=== PATIENT | male | born 1990 | race Caucasian/White ===

== ENCOUNTER 2024-11-07 20:31 | Emergency (ER) | payer SELFPAY ==
[~2024-11-07] VITALS: Ht 170.2 cm; Wt 109.0 kg
[2024-11-07 20:42] VITALS: O2SAT 98
[2024-11-07 21:38] LABS: CLARITY URINE CLEAR (CLEAR); COLOR URINE YELLOW (YELLOW); GLUCOSE URINE NEGATIVE (NEGATIVE); KETONES URINE NEGATIVE (NEGATIVE); LEUKOCYTE ESTERASE URINE NEGATIVE (NEGATIVE); NITRITE URINE NEGATIVE (NEGATIVE); OCCULT BLOOD URINE NEGATIVE (NEGATIVE); PH URINE 6.0 (4.5-8.0); PROTEIN URINE NEGATIVE (NEGATIVE); SPECIFIC GRAVITY URINE 1.004 (1.005-1.030); UROBILINOGEN URINE 0.2 E.U./dL (0.2-1.0)
[2024-11-07 21:44] LABS: HEMATOCRIT. 38.9 % (42.0-52.0); HEMOGLOBIN. 12.8 g/dL (14.0-18.0); MEAN PLATELET VOLUME 6.7 fl (7.4-10.4); PLATELET 551 x1000/uL (130-400); RED BLOOD CELL COUNT 4.23 mill/uL (4.7-6.1); RED CELL DISTRIBUTION WIDTH 15.2 % (11.6-14.6)
[2024-11-07 21:47] LABS: *AMPHETAMINES SCREEN URINE NEGATIVE (NEGATIVE); *BARBITURATES SCREEN URINE NEGATIVE (NEGATIVE); *BENZODIAZEPINES SCREEN URINE PRESUMPTIVE POSITIVE (NEGATIVE); *COCAINE SCREEN URINE NEGATIVE (NEGATIVE); METHADONE URINE SCREEN NEGATIVE (NEGATIVE); OPIATES URINE SCREEN NEGATIVE (NEGATIVE)
[2024-11-07 21:48] LABS: CANNABINOID URINE SCREEN PRESUMPTIVE POSITIVE (NEGATIVE); ECSTASY MDMA SCREEN URINE NEGATIVE (NEGATIVE); PHENCYCLIDINE URINE SCREEN NEGATIVE (NEGATIVE)
[2024-11-07 21:57] LABS: CREATININE 0.7 mg/dL (0.6-1.3)
[2024-11-07 21:59] LABS: ASPARTATE AMINOTRANSFERASE 134 IU/L (<34); BILIRUBIN DIRECT 0.8 mg/dL (<=3.0); UREA NITROGEN BLOOD < 5 mg/dL (9-23)
[2024-11-07 22:00] LABS: PROTEIN TOTAL 7.8 g/dL (6.0-8.3)
[2024-11-07 22:01] LABS: BILIRUBIN TOTAL 1.1 mg/dL (0.1-1.0)
[2024-11-07 22:15] LABS: EOSINOPHILS % MANUAL 2.0 % (0.0-5.0); LYMPHOCYTES % MANUAL 26.0 % (20.0-50.0); MONOCYTES % MANUAL 8.0 % (2.0-8.0); NEUTROPHILS % MANUAL 64.0 % (45.0-75.0); PLATELET ESTIMATE INCREASED
[2024-11-07 22:32] LABS: ETHANOL BLOOD 449 mg/dL (<10)
[2024-11-08] MEDS: CHLORDIAZEPOXIDE 25MG CAPSULE PO PRN (12:15)
[2024-11-08 17:26] VITALS: BP 132/78; PULSE 72; RESP 16; TEMP 36.9; O2SAT 100
== END 2024-11-08 17:57 ==
LOC: ER 20:31
DX: R45.851 Suicidal ideations (principal); F10.129 Alcohol abuse with intoxication, unspecified; F41.9 Anxiety disorder, unspecified; F31.9 Bipolar disorder, unspecified; Z20.822 Contact with and (suspected) exposure to COVID-19; Z79.899 Other long term (current) drug therapy; Y90.9 Presence of alcohol in blood, level not specified
CPT/HCPCS: 36415; 80048; 80076; 80305; 80307; 80320; 80329; 81003; 83735; 85025; 87426; 99285; G0480